=== PATIENT | male | born 1990 | race Caucasian/White ===

== ENCOUNTER 2017-07-31 10:41 | Emergency (ER) | payer MEDICAID ==
[~2017-07-31] VITALS: Ht 162.6 cm; Wt 100.0 kg
[2017-07-31] MEDS ORDERED: SODIUM CHLORIDE 0.9% 1,000 ML IV ONE (11:23)
[2017-07-31] MEDS ORDERED: ONDANSETRON HCL 4MG/2ML VIAL IV STA (11:23)
[2017-07-31 11:43] LABS: HEMATOCRIT. 44.3 % (42.0-52.0); HEMOGLOBIN. 15.7 g/dL (14.0-18.0); MEAN CORPUSCULAR HEMOGLOBIN 31.3 pg (28.0-32.0); MEAN CORPUSCULAR VOLUME 88.1 fL (80.0-94.0); MEAN PLATELET VOLUME 9.8 fl (7.4-10.4); PLATELET 113 x1000/uL (130-400); RED BLOOD CELL COUNT 5.02 mill/uL (4.7-6.1); RED CELL DISTRIBUTION WIDTH 13.6 % (11.6-14.6)
[2017-07-31 11:49] LABS: CHLORIDE 100 mEq/L (98-107)
[2017-07-31 12:11] LABS: PLATELET ESTIMATE DECREASED
[2017-07-31 12:56] LABS: PROTHROMBIN TIME 10.7 sec (9.4-11.6)
[2017-07-31 13:29] LABS: CLARITY URINE CLEAR (CLEAR); COLOR URINE YELLOW (YELLOW); KETONES URINE NEGATIVE (NEGATIVE); LEUKOCYTE ESTERASE URINE NEGATIVE (NEGATIVE); NITRITE URINE NEGATIVE (NEGATIVE); OCCULT BLOOD URINE NEGATIVE (NEGATIVE); PH URINE >=9.0 (4.5-8.0); PROTEIN URINE TRACE (NEGATIVE); SPECIFIC GRAVITY URINE 1.026 (1.005-1.030)
[2017-07-31 14:44] VITALS: BP 125/74
== END 2017-07-31 14:46 | disposition home or self-care (01) ==
LOC: ER 10:53
DX: A08.4 Viral intestinal infection, unspecified (principal); F12.10 Cannabis abuse, uncomplicated
CPT/HCPCS: 36415; 80053; 81003; 83690; 85025; 85610; 96361; 96374; 99285; J2405; J7030; Z7610

== ENCOUNTER 2018-12-30 19:50 | Emergency (ER) | payer MEDICAID ==
[~2018-12-30] VITALS: Ht 162.6 cm; Wt 85.0 kg
[2018-12-30] MEDS ORDERED: OXYCODONE HCL/ACETAMINOPHEN 5/325MG TABLET PO ONE (22:30)
[2018-12-30] MEDS ORDERED: KETOROLAC 60MG/2ML VIAL IM ONE (22:30)
[2018-12-31 02:17] VITALS: BP 130/78
== END 2018-12-31 02:27 | disposition home or self-care (01) ==
LOC: ER 19:50
DX: S43.492A Other sprain of left shoulder joint, initial encounter (principal); W18.39XA Other fall on same level, initial encounter; Y93.89 Activity, other specified; Y92.89 Other specified places as the place of occurrence of the external cause; Y99.8 Other external cause status; F12.10 Cannabis abuse, uncomplicated; F17.290 Nicotine dependence, other tobacco product, uncomplicated
CPT/HCPCS: 73030; 96372; 99283; 99406; J1885

== ENCOUNTER 2021-07-03 14:49 | Emergency (ER) | payer SELFPAY | END 2021-07-03 16:11 | disposition left against medical advice (07) | LOC: ER 14:49 | DX: Z53.21 Procedure and treatment not carried out due to patient leaving prior to being seen by health care provider (principal) ==

== ENCOUNTER 2022-11-06 16:07 | Emergency (ER) | payer SELFPAY ==
[~2022-11-06] VITALS: Ht 165.1 cm; Wt 87.0 kg
[2022-11-06 16:43] VITALS: BP 155/94; PULSE 110; RESP 19; TEMP 98; O2SAT 100
== END 2022-11-06 20:00 | disposition left against medical advice (07) ==
LOC: ER 16:07
DX: Z53.21 Procedure and treatment not carried out due to patient leaving prior to being seen by health care provider (principal)
CPT/HCPCS: 99281

== ENCOUNTER 2023-03-28 06:38 | Emergency (ER) | payer SELFPAY ==
[~2023-03-28] VITALS: Ht 165.1 cm; Wt 91.0 kg
[2023-03-28 06:46] VITALS: BP 125/82; PULSE 108; RESP 18; TEMP 98.5; O2SAT 99
== END 2023-03-28 09:16 | disposition left against medical advice (07) ==
LOC: ER 06:38
DX: R05.9 Cough, unspecified (principal); Z53.21 Procedure and treatment not carried out due to patient leaving prior to being seen by health care provider
CPT/HCPCS: 99281

== ENCOUNTER 2024-09-17 12:44 | Emergency (ER) | payer SELFPAY ==
[~2024-09-17] VITALS: Ht 162.6 cm; Wt 86.0 kg
[2024-09-17 12:49] VITALS: O2SAT 97
[2024-09-17 12:53] VITALS: BP 144/99; PULSE 120; RESP 16; TEMP 36.9; O2SAT 97
== END 2024-09-17 16:06 | disposition left against medical advice (07) ==
LOC: ER 12:51
DX: S80.861A Insect bite (nonvenomous), right lower leg, initial encounter (principal); Z53.21 Procedure and treatment not carried out due to patient leaving prior to being seen by health care provider; W57.XXXA Bitten or stung by nonvenomous insect and other nonvenomous arthropods, initial encounter; Y93.89 Activity, other specified; Y92.89 Other specified places as the place of occurrence of the external cause; Y99.8 Other external cause status